=== PATIENT | female | born 1965 | race American Indian/Alaskan Native ===

== ENCOUNTER 2017-05-22 14:53 | Emergency (ER) | payer BC, MEDICARE, OTHER ==
[2017-05-22] MEDS ORDERED: Lidocaine 5% Patch TD STA (16:48)
[2017-05-22] MEDS ORDERED: Lidocaine 5% Patch TD ONE (16:54)
[2017-05-22 17:06] VITALS: RESP 17
--- NOTE | 2017-05-22 17:50 | C.PDOC ---
History Of Present Illness Ann Sheth is a 52 y/o female who presents to the ED complaining of right hip pain, which is constant and worsening over the past 3 days. Of note, patient has a history of DVTs (first was 3 years ago and another 2 years ago), and was treated with Xarelto and had IVC placed. Patient now takes baby aspirin daily. Today her hip pain worsened so she called her PMD, who referred her to come to ED to r/o DVT. Pain worsens with movement and radiates down her right thigh. On the first day, patient vomited 3 times in response to pain flares. Otherwise no nausea, vomiting, diarrhea, chest pain, shortness of breath, numbness or weakness. PMD: Clif [facility] Time Seen by Provider: 05/22/17 15:11 Chief Complaint (Nursing): Lower Extremity Problem/Injury History Per: Patient History/Exam Limitations: no limitations Onset/Duration Of Symptoms: Days (x3) Current Symptoms Are (Timing): Still Present Past Medical History Reviewed: Historical Data, Nursing Documentation, Vital Signs Vital Signs: Last Vital Signs Temp 98.0 F 05/22/17 17:05 Pulse 71 05/22/17 17:05 Resp 17 05/22/17 17:05 BP 145/85 05/22/17 17:05 Pulse Ox 99 05/22/17 17:54 - Medical History PMH: Anxiety, Depression, Deep Vein Thrombosis, HTN, Schizophrenia Denies: Diabetes, Hepatitis, HIV, Chronic Kidney Disease, Seizures, Sexually Transmitted Disease - [facility] Procedures ATTACH PEDICLE GRAFT NEC (12/12/13) PLICATION OF VENA CAVA (12/12/13) Family History: States: Unknown Family Hx - Social History Hx Tobacco Use: No Hx Alcohol Use: No Hx Substance Use: No - Immunization History Hx Tetanus Toxoid Vaccination: Yes Hx Influenza Vaccination: No Hx Pneumococcal Vaccination: No Review Of Systems Except As Marked, All Systems Reviewed And Found Negative. Constitutional: Negative for: Fever Cardiovascular: Negative for: Chest Pain Respiratory: Negative for: Shortness of Breath Gastrointestinal: Negative for: Nausea, Vomiting, Diarrhea Musculoskeletal: Positive for: Leg Pain (right hip) Neurological: Negative for: Weakness, Numbness Physical Exam - Physical Exam Appears: Non-toxic, No Acute Distress Skin: Normal Color, Warm, Dry Head: Atraumatic, Normacephalic Eye(s): bilateral: Normal Inspection, PERRL, EOMI Nose: Normal Neck: Normal, Supple Chest: Symmetrical Cardiovascular: Rhythm Regular, No Murmur Respiratory: Normal Breath Sounds, No Accessory Muscle Use Gastrointestinal/Abdominal: Soft, No Tenderness Back: Normal Inspection, No CVA Tenderness, No Vertebral Tenderness Extremity: Normal ROM, Tenderness (Mild point tenderness to lateral aspect of right hip but no pain with movement), No Pedal Edema, No Calf Tenderness (or signs of DVT), No Deformity, No Swelling (or bruising) Neurological/Psych: Oriented x3, Normal Speech, Normal Motor, Normal Sensation ED Course And Treatment O2 Sat by Pulse Oximetry: 99 (RA) Pulse Ox Interpretation: Normal Progress Note: Ordered US Venous Duplex Lower Extremity. Patient given Motrin, Tylenol, and Lidocaine patch. US showed chronic clot, no acute findings. Disposition Counseled Patient/Family Regarding: Studies Performed, Diagnosis, Need For Followup, Rx Given - Disposition Disposition: HOME/ ROUTINE Disposition Time: 18:17 Condition: STABLE Additional Instructions: Follow up with your doctor. Take Motrin for pain. Take Tramadol at night before bed. Prescriptions: Ibuprofen [Motrin] 600 mg PO TID #15 tab traMADol/Acetaminophen [Ultracet 37.5/325 mg] 1 tab PO TID PRN #15 tab PRN Reason: pain Instructions: Hip Pain (ED) Forms: [facility] (Armenian), General Discharge Instructions - POA Present On Arrival: None - Clinical Impression Clinical Impression: Joint pain - Scribe Statement The provider has reviewed the documentation as recorded by the Faizaibjeremiah Cordoba All medical record entries made by the Faizaibe were at my direction and personally dictated by me. I have reviewed the chart and agree that the record accurately reflects my personal performance of the history, physical exam, medical decision making, and the department course for this patient. I have also personally directed, reviewed, and agree with the discharge instructions and disposition.
[2017-05-22 18:23] VITALS: BP 149/96; PULSE 69; TEMP 98.4; O2SAT 98
--- NOTE | 2017-05-25 14:23 | VASCLAB ---
PROCEDURE: Right Lower Extremity Venous Duplex Exam. HISTORY: right hip pain PRIORS: None. TECHNIQUE: Right common femoral, femoral, popliteal and posterior tibial, peroneal and great saphenous veins were evaluated. Flow was assessed with color Doppler, compressibility, assessment of phasic flow and augmentation response. Report prepared by VILMA Aparicio, RVT FINDINGS: RIGHT: 1. Common Femoral Vein: 1.1. Compressibility - Partial: Thrombus - Chronic: Flow - Reduced : Augmentation -Reduced: Reflux - None. 2. Femoral Vein: 2.1. Compressibility - Fully compressible: Thrombus - None: Flow - Phasic: Augmentation -Normal: Reflux - None. 3. Popliteal Vein: 3.1. Compressibility - Partial: Thrombus - Chronic: Flow - Reduced : Augmentation -Reduced: Reflux - None. 4. Posterior Tibial Vein: 4.1. Compressibility - Fully compressible: Thrombus - None: Flow - Phasic: Augmentation -Normal: Reflux - None. 5. Peroneal Vein: 5.1. Compressibility - Fully compressible: Thrombus - None: Flow - Phasic: Augmentation -Normal: Reflux - None. 6. Great Saphenous Vein: 6.1. Compressibility - Fully compressible: Thrombus -None: Flow - Phasic: Augmentation - Normal: Reflux - None. OTHER FINDINGS: Severe valvular incompetence of the right peroneal vein. Dr. Moore notified about the findings. 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 Normal venous flow noted in the left common femoral vein.
== END 2017-05-22 18:32 | disposition home or self-care (01) ==
LOC: C.ER 14:53
DX: M25.551 Pain in right hip (principal)

== ENCOUNTER 2017-11-27 11:13 | Emergency (ER) | payer MEDICARE ==
[2017-11-27 11:46] VITALS: RESP 18
[2017-11-27] MEDS ORDERED: Sodium Chloride 0.9% 1,000 ML IV ONE (11:55)
[2017-11-27] MEDS ORDERED: Sodium Chloride 0.9% 1,000 ML ONE (12:00)
[2017-11-27 12:15] LABS: BASO % 0.5 % (0.0-2.0); EOS % 0.5 % (0.0-4.0); HEMOGLOBIN 12.5 g/dL (11.0-16.0); LYMPH # 0.9 K/uL (1.0-4.3); LYMPH % 34.7 % (20.0-40.0); MEAN CORPUSCULAR HEMOGLOBIN 32.7 pg (27.0-31.0); MEAN CORPUSCULAR HGB CONC 35.1 g/dL (33.0-37.0); MEAN PLATELET VOLUME 8.3 fL (7.2-11.7); MONO # 0.3 K/uL (0.0-0.8); MONO % 11.5 % (0.0-10.0); NEUT # 1.4 K/uL (1.8-7.0); NEUT % 52.8 % (50.0-75.0); NRBC % 0.1 % (0.0-2.0); RBC 3.83 Mil/uL (3.80-5.20); RED CELL DISTRIBUTION WIDTH 14.1 % (11.5-14.5); WHITE BLOOD COUNT 2.7 K/uL (4.8-10.8)
[2017-11-27 12:17] LABS: MEAN CELL VOLUME 93.1 fL (81.0-99.0)
[2017-11-27 12:34] LABS: ALB/GLOB RATIO 0.8 (1.0-2.1); ALBUMIN 3.8 g/dL (3.5-5.0); ALT/SGPT 21 U/L (9-52); AST/SGOT 26 U/L (14-36); BLOOD UREA NITROGEN 10 mg/dL (7-17); CALCIUM 8.9 mg/dl (8.6-10.4); GFR AFRICAN-AMERICAN > 60; GFR NON-AFRICAN AMERICAN > 60
[2017-11-27 12:43] LABS: URINE BILIRUBIN NEGATIVE (NEGATIVE); URINE BLOOD NEGATIVE (NEGATIVE); URINE CLARITY Clear (Clear); URINE COLOR Straw (YELLOW); URINE GLUCOSE (UA) NORMAL (Normal); URINE LEUKOCYTE ESTERASE NEG Leu/uL (Negative); URINE PROTEIN NEGATIVE (NEGATIVE); URINE UROBILINOGEN NORMAL mg/dL (0.2-1.0)
[2017-11-27 12:44] LABS: CK-MB 0.41 ng/mL (0.0-3.38)
--- NOTE | 2017-11-27 12:45 | CT ---
PROCEDURE: CT HEAD WITHOUT CONTRAST. HISTORY: R/O Bleed COMPARISON: None available. TECHNIQUE: Axial computed tomography images were obtained through the head/brain without intravenous contrast. Radiation dose: Total exam DLP = 769.28 mGy-cm. This CT exam was performed using one or more of the following dose reduction techniques: Automated exposure control, adjustment of the mA and/or kV according to patient size, and/or use of iterative reconstruction technique. FINDINGS: HEMORRHAGE: No acute parenchymal, subarachnoid or extra-axial hemorrhage. BRAIN: No mass effect or edema. No atrophy or chronic microvascular ischemic changes. VENTRICLES: No obstructive hydrocephalus CALVARIUM: There are no acute calvarial fractures. PARANASAL SINUSES: Unremarkable as visualized. No significant inflammatory changes. MASTOID AIR CELLS: Unremarkable as visualized. No inflammatory changes. OTHER FINDINGS: None. IMPRESSION: No acute intracranial hemorrhage.
--- NOTE | 2017-11-27 13:16 | C.PDOC ---
History Of Present Illness 52 yo female with PMH of HTN c/o dizziness since yesterday. Pt notes that she feels like the room is spinning when she gets up too fast or turns her head. Pt notes she feels steady when she walks. Denies headache, trauma, change in sensation , chest pain, sob, visual changes, n/v, photophobia, subjective neurological deficits. Notes no known h/o vertigo though reports her mother has it. Time Seen by Provider: 11/27/17 11:46 Chief Complaint (Nursing): Dizziness/Lightheaded History Per: Patient History/Exam Limitations: no limitations Onset/Duration Of Symptoms: Days Current Symptoms Are (Timing): Still Present Past Medical History Reviewed: Historical Data, Nursing Documentation, Vital Signs Vital Signs: Last Vital Signs Temp 98.4 F 11/27/17 13:40 Pulse 76 11/27/17 13:40 Resp 18 11/27/17 13:40 BP 134/86 11/27/17 13:40 Pulse Ox 99 11/27/17 13:40 - Medical History PMH: Anxiety, Depression, Deep Vein Thrombosis, HTN, Schizophrenia Surgical History: No Surg Hx - [facility] Procedures ATTACH PEDICLE GRAFT NEC (12/12/13) PLICATION OF VENA CAVA (12/12/13) Family History: States: No Known Family Hx - Social History Hx Tobacco Use: No Hx Alcohol Use: No Hx Substance Use: No - Immunization History Hx Tetanus Toxoid Vaccination: Yes Hx Influenza Vaccination: No Hx Pneumococcal Vaccination: No Review Of Systems Constitutional: Negative for: Fever, Chills Eyes: Negative for: Vision Change Cardiovascular: Negative for: Chest Pain Respiratory: Negative for: Shortness of Breath Gastrointestinal: Negative for: Nausea, Vomiting Neurological: Positive for: Dizziness. Negative for: Weakness, Numbness, Headache Physical Exam - Physical Exam Appears: Non-toxic, No Acute Distress Skin: Warm, Dry, No Rash Head: Atraumatic, Normacephalic Eye(s): bilateral: Normal Inspection (No nystagmus), EOMI Ear(s): Bilateral: Normal Nose: Normal Oral Mucosa: Moist Neck: Normal ROM, Supple Chest: Symmetrical Cardiovascular: Rhythm Regular Respiratory: Normal Breath Sounds, No Accessory Muscle Use, No Rales, No Rhonchi , No Wheezing Gastrointestinal/Abdominal: Soft, No Tenderness, No Guarding, No Rebound Extremity: Normal ROM, Capillary Refill (<2 seconds) Neurological/Psych: Oriented x3, Normal Speech, Normal Cognition, Normal Cranial Nerves (no focal deficits) Gait: Steady Other Neurological Findings: Other ((-) nystagnus, (+) enrico hallpike resulted in dizziness) ED Course And Treatment - Laboratory Results Result Diagrams: 11/27/17 12:12 11/27/17 12:12 ECG: Interpreted By Me, Viewed By Me ECG Rhythm: Sinus Rhythm Rate From EC (BPM) O2 Sat by Pulse Oximetry: 100 (RA) Pulse Ox Interpretation: Normal Progress Note: Antivert and IV fluids administered. On re-evaluation, pt notes she feels better and is currently not dizzy. Patient is now asymptomatic, denies any neurologic complaints, is ambulating well, and is tolerating PO. Patient will be discharged home on Antivert. Patient was instructed to follow up with physician/clinic, and to return to the ER in 1-2 days if no follow up can be arranged. Case discussed with Dr Whittaker, agreed upon plan and discharge. Disposition - Disposition Disposition: HOME/ ROUTINE Disposition Time: 13:24 Condition: STABLE Additional Instructions: Follow up with PMD in 1-2 days. Return to ER if symptoms persist or worsen. 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 - Scribe Statement The provider has reviewed the documentation as recorded by the Faizaibjeremiah Bonilla All medical record entries made by the Faizaibjeremiah were at my direction and personally dictated by me. I have reviewed the chart and agree that the record accurately reflects my personal performance of the history, physical exam, medical decision making, and the department course for this patient. I have also personally directed, reviewed, and agree with the discharge instructions and disposition.
[2017-11-27 13:41] VITALS: BP 134/86; PULSE 76; TEMP 98.4
[2017-11-28 22:27] VITALS: O2SAT 100
== END 2017-11-27 13:47 | disposition home or self-care (01) ==
LOC: C.ER 11:13
DX: R42 Dizziness and giddiness (principal); F20.9 Schizophrenia, unspecified; I10 Essential (primary) hypertension
CPT/HCPCS: 70450; 80053; 81001; 82550; 82553; 82948; 84484; 85025; 96360; 99285; J7040

== ENCOUNTER 2018-08-18 11:41 | Outpatient (CLI) | payer BC, MEDICARE | END 2018-08-18 11:42 | disposition home or self-care (01) | LOC: C.RADH 11:41 ==